=== PATIENT | male | born 1970 | race Caucasian/White ===

== ENCOUNTER 2018-12-22 16:46 | Inpatient (IN) ==
--- NOTE | 2018-12-22 16:54 | Emergency Department Note ---
Disposition Clinical Impression: Acute exacerbation of chronic obstructive airways disease Disposition: Admitted As Inpatient Condition: Fair Time of Disposition: 17:55 [facility] SOB HPI - General Stated Complaint: shortness of breath/head pain Time Seen by Provider: 12/22/18 16:54 Source: patient Mode of arrival: ambulatory Limitations: no limitations Nursing Notes Reviewed: Yes Vital Signs Reviewed: Yes - History of Present Illness Sudden onset shortness of breath unable to catch his breath he states that he is having no cough no hemoptysis no sputum production patient states it occurred as is leaving work he denies any diarrhea melena hematochezia hematemesis numbness tingling weakness recent weight gain or weight loss patient states though he examined given a relief inhaler all systems have been reviewed and are otherwise negative Pt Subjective Complaint: shortness of breath Onset (ago): [employer] Context: other (COPD history) Severity: severe Consistency/Duration: gradually worsening Improves with: nothing Worsens with: nothing Known history of: COPD Associated symptoms: Reports: cough, wheezing, sputum production, diaphoresis. Denies: chest pain, pain with inspiration, fever, orthopnea, lower extremity pain, polyuria, polydipsia, parasthesias, palpitations, hemoptysis, n ausea/vomiting, syncope, abdominal pain, sense of impending doom Treatment prior to arrival: none Cough present: Yes Cough Description: Involuntary, Non-Productive, Wheezy Cough Frequency: Intermittent Sputum production: No - Related Data Home Medications Medication Instructions Recorded Confirmed RX: Lisinopril-HCTZ 20-12.5 1 each PO DAILY 09/24/16 12/22/18 [Prinzide 20-12.5] Albuterol Neb [Proventil Neb] 2.5 mg IH ONCE 08/06/18 12/22/18 Budesonide/Formoterol 80/4.5 0 gm IH BIDR 08/06/18 12/22/18 [Symbicort 80/4.5] Previous Rx's Medication Instructions Recorded RX: Albuterol Neb [Proventil Neb] 2.5 mg IH Q4HR #30 vial.neb 08/06/18 Allergies Allergy/AdvReac Type Severity Reaction Status Date / Time Penicillins Allergy Hives Verified 12/22/18 20:25 All systems ED: reviewed and negative except as stated. Review of Systems: As Per HPI Constitutional: Denies: fever, chills, weakness Eyes: Denies: eye pain, eye discharge ENT ED: Reports: congestion. Denies: ear pain, throat pain Cardiovascular: Denies: chest pain, palpitations, syncope Respiratory: Reports: cough, dyspnea, wheezes, sputum production Gastrointestinal: Denies: abdominal pain, nausea Genitourinary: Denies: urgency, dysuria Musculoskeletal: Denies: back pain Neurological: Denies: headache Psychiatric: Denies: anxiety Endocrine: Denies: fatigue Hematological/Lymphatic: Denies: easy bleeding Allergic/Immunologic: Denies: facial swelling Past Medical History - Past Medical History Attestation: Yes The following information was validated with the patient. Source: patient, old records reviewed, nursing notes reviewed Medical history: Reports: asthma, COPD, diabetes, hyperlipidemia, hypertension Psychiatric history: Reports: no psych history - Social History Smoking Status: Current every day smoker Smokeless Tobacco Status: No Alcohol use: Reports: heavy Drug use: Reports: none Physical Exam - General Limitations: no limitations General appearance: alert, anxious, in distress, obese - Head Head exam: atraumatic, normocephalic, normal inspection - Eye Eye exam: Present: normal appearance, PERRL, EOMI - ENT ENT exam: normal exam, normal oropharynx, mucous membranes moist, TM's normal bilaterally, normal external ear exam - Neck Neck exam: Present: normal inspection, full ROM, trachea midline - Chest Chest inspection: Present: normal inspection, symmetric chest wall rise - Respiratory Respiratory exam: Present: wheezes - Cardiovascular Cardiovascular exam: Present: regular rate, normal rhythm, normal heart sounds - Abdominal Exam Abdominal exam: Present: soft, Non-Tender, normal bowel sounds. Absent: mass, pulsatile mass - Extremities Exam Extremities exam: Present: normal inspection, full ROM, normal capillary refill. Absent: tenderness, pedal edema, joint swelling, calf tenderness - Expanded Lower Extremity Exam Neurovascular/Tendon exam: Present: normal capillary refill, normal fine/light touch Gait: observed and normal - Back Exam Back exam: Present: normal inspection, full ROM. Absent: muscle spasm - Neurological Exam Neurological exam: Present: alert, oriented X3, CN II-XII intact, normal gait - Psychiatric Psychiatric exam: Present: normal affect, normal mood - Skin Skin exam: Present: warm, dry, intact, normal color Course Course Narrative: Patient was immediately seen and evaluated was given 2 aerosol treatments Solu- Medrol started on Levaquin patient cardiac after the aerosol treatments showing a little bit more movement of air exchange as result though chest x-rays obtained will give him a brief rest to see if we needed to give him additional aerosol treatments after dosing of steroids first 2 nebulizer treatments to see if that will resolve tolerated patient is resting comfortably at this time his skin now is warm and dry he is not diaphoretic able speak full sentences patient improving - Reevaluation(s) Reevaluation #1: Patient did meet sepsis criteria by the heart rate other indicators other than having a slightly elevated lactic acid which we did give him 30 ML's per kilo based upon his [place] body weight of about approximately 170 pounds which would 2400 ML's as result patient be admitted for observation recommendations I spoke with Yary Brown she did agree for admission the services Vital Signs O2 Sat by Pulse Oximetry 88 12/22/18 16:49 Temperature 98.0 F 12/23/18 04:00 Pulse Rate 99 12/23/18 04:00 Respiratory Rate 18 12/23/18 04:00 Blood Pressure 118/78 12/23/18 04:00 O2 Sat by Pulse Oximetry 96 12/23/18 04:00 Oxygen Delivery Oxygen Delivery Nasal Cannula Shortness of Breath/Dyspnea - Differential Diagnosis Likely: acute exacerbation of chronic obstructive airways disease, pneumonia - Medical Records Medical records reviewed: Yes I reviewed the patient's medical records. - Lab Data Lab results reviewed: Yes I reviewed the patient's lab results. Result diagrams: 12/22/18 17:19 12/22/18 17:19 Lab Results 12/22/18 12/22/18 12/22/18 Range/Units 17:19 17:19 17:19 WBC 9.2 (4.3-11.1) K/mcL RBC 4.75 (4.19-5.50) M/mcL Hgb 16.0 (12.9-16.9) g/dL Hct 45.2 (37.5-50.1) % MCV 95.2 (83.0-100.0) fL MCH 33.7 H (28.0-33.3) pg MCHC 35.4 (31.6-35.5) g/dL RDW 11.7 (11.5-14.5) % Plt Count 212 (140-400) K/mcL MPV 9.0 L (9.4-12.4) fL Immature Gran % 0.5 (0-4) % Seg Neutrophils % 88.3 % Lymphocytes % 4.1 % Monocytes % 6.5 % Eosinophils % 0.1 % Basophils % 0.5 % Neutrophils # 8.1 (1.6-8.9) K/mcL Lymphocytes # 0.4 L (0.6-4.6) K/mcL Monocytes # 0.6 (0.0-1.3) K/mcL Eosinophils # 0.0 (0.0-0.6) K/mcL Basophils # 0.1 (0.0-0.2) K/mcL PT 12.5 H (9.4-12.1) Seconds INR 1.1 APTT 33.1 (26.0-36.0) Seconds D-Dimer (0-500) ng/mLFEU Sodium 130 L (136-145) mEq/L Potassium 4.2 (3.5-5.1) mEq/L Chloride 96 L (98-107) mEq/L Carbon Dioxide 26 (23-29) mEq/L BUN 7 (6-20) mg/dL Creatinine 0.81 (0.70-1.30) mg/dL Est GFR ( Amer) > 60 (> 60) Est GFR (Non-Af Amer) > 60 (> 60) BUN/Creatinine Ratio 9 (6-26) Glucose 121 H (70-105) mg/dL Calculated Osmolality 269 L (280-300) Lactic Acid (0.5-2.2) mmol/L Calcium 9.1 (8.6-10.3) mg/dL Troponin I (< 0.04) ng/mL 12/22/18 12/22/18 12/22/18 Range/Units 17:19 17:19 17:19 WBC (4.3-11.1) K/mcL RBC (4.19-5.50) M/mcL Hgb (12.9-16.9) g/dL Hct (37.5-50.1) % MCV (83.0-100.0) fL MCH (28.0-33.3) pg MCHC (31.6-35.5) g/dL RDW (11.5-14.5) % Plt Count (140-400) K/mcL MPV (9.4-12.4) fL Immature Gran % (0-4) % Seg Neutrophils % % Lymphocytes % % Monocytes % % Eosinophils % % Basophils % % Neutrophils # (1.6-8.9) K/mcL Lymphocytes # (0.6-4.6) K/mcL Monocytes # (0.0-1.3) K/mcL Eosinophils # (0.0-0.6) K/mcL Basophils # (0.0-0.2) K/mcL PT (9.4-12.1) Seconds INR APTT (26.0-36.0) Seconds D-Dimer 459 (0-500) ng/mLFEU Sodium (136-145) mEq/L Potassium (3.5-5.1) mEq/L Chloride (98-107) mEq/L Carbon Dioxide (23-29) mEq/L BUN (6-20) mg/dL Creatinine (0.70-1.30) mg/dL Est GFR ( Amer) (> 60) Est GFR (Non-Af Amer) (> 60) BUN/Creatinine Ratio (6-26) Glucose (70-105) mg/dL Calculated Osmolality (280-300) Lactic Acid 2.4 H (0.5-2.2) mmol/L Calcium (8.6-10.3) mg/dL Troponin I < 0.03 (< 0.04) ng/mL - Radiology Data Radiology results reviewed: Yes I reviewed the patient's radiology results. ITS Impressions Chest X-Ray 12/22/18 16:59 IMPRESSION: No evidence for acute cardiopulmonary process. D/ / Jeremias Garduno MD / Jeremias Garduno MD Interpreting Provider: Jeremias Garduno MD - EKG Data EKG attestation: Yes I reviewed and interpreted this EKG. EKG results narrative: Sinus tach rate 129 RI 136 QRS 79 QT to 71 axis LV Critical Care Time Critical Care Time: Yes Total Critical Care Time: 35 Attestation: high probability of clinically significant life-threatening deterioration of this patient's condition as result we will COPD exacerbation which came on fairly abruptly for the etiology unknown with no recent cold symptoms but with the underlying history of COPD recommend observation status have spoken with the hospitalist who agrees after repeated aerosol treatments showing some improvement of his respiratory status though it does make him tachycardic with repeated treatments Sepsis Event Note - Evaluation Sepsis Screen: Sepsis Risk Current Stage of Suspected Sepsis: ruled out Reason for ruling out sepsis: copd exhaserbation Possible Source of Sepsis: pulmonary - Focused Exam Date of Encounter: 12/22/18 Time of Encounter: 17:50 Vital Signs: Vital Signs Pulse Resp BP Pulse Ox 12/22/18 18:05 20 96 12/22/18 18:00 118 16 142/95 96 Respiratory Exam: Present: wheezes, accessory muscle use, decreased breath sounds, prolonged expiratory phas Cardiovascular Exam: Present: tachycardia Capillary Refill: < 2 seconds Peripheral Pulse Strength: 3+ normal Peripheral Pulse Location: Radial Skin Exam: normal turgor - Bedside Monitoring Bedside Ultrasound Performed: No Passive Leg raise/fluid bolus: negative
[2018-12-22] MEDS ORDERED: Ipratropium/Albuterol Neb 3 ML ONE ×3 (16:55→20:25)
[2018-12-22] MEDS ORDERED: methylPREDNISolone 125 MG/2 ML VIAL IVP ONE (16:56)
[2018-12-22] MEDS ORDERED: 0.9 % Sodium Chloride 1,000 ML IVC ONE (16:56)
[2018-12-22] MEDS ORDERED: Levofloxacin 500 MG/100 ML 500 MG/100 ML BAG IVPB ONE (16:56)
[2018-12-22] MEDS ORDERED: Ipratropium/Albuterol Neb 3 ML IH ONE (16:56)
[2018-12-22 17:25] LABS: Basophils # 0.1 K/mcL (0.0-0.2); Basophils % 0.5 %; Eosinophils % 0.1 %; Hematocrit 45.2 % (37.5-50.1); Immature Granulocytes % 0.5 % (0-4); Lymphocytes # 0.4 K/mcL (0.6-4.6); Lymphocytes % 4.1 %; Mean Corpuscular HGB Conc 35.4 g/dL (31.6-35.5); Mean Corpuscular Hemoglobin 33.7 pg (28.0-33.3); Mean Corpuscular Volume 95.2 fL (83.0-100.0); Monocytes # 0.6 K/mcL (0.0-1.3); Monocytes % 6.5 %; Neutrophils # 8.1 K/mcL (1.6-8.9); Platelet Count 212 K/mcL (140-400); Red Blood Count 4.75 M/mcL (4.19-5.50); Red Cell Distribution Width 11.7 % (11.5-14.5); Segmented Neutrophils % 88.3 %
[2018-12-22 17:35] LABS: INR 1.1; Prothrombin Time 12.5 Seconds (9.4-12.1)
[2018-12-22 17:38] LABS: Activated Partial Thrombo Time 33.1 Seconds (26.0-36.0)
[2018-12-22 17:44] LABS: BUN/Creatinine Ratio 9 (6-26); Blood Urea Nitrogen 7 mg/dL (6-20); Calcium 9.1 mg/dL (8.6-10.3); Carbon Dioxide 26 mEq/L (23-29); Chloride 96 mEq/L (98-107); Glucose 121 mg/dL (70-105); Osmolality,Calculated 269 (280-300); Potassium 4.2 mEq/L (3.5-5.1); Sodium 130 mEq/L (136-145); eGFR For Non-African Americans > 60 (> 60)
[2018-12-22] MEDS ORDERED: Albuterol Neb 7.5 MG, Sodium Chloride for inhalation 12 ML IH ONE (17:56)
[2018-12-22] MEDS ORDERED: 0.9 % Sodium Chloride 1,000 ML IVC SCH (18:00)
[2018-12-22] MEDS: 0.9 % Sodium Chloride 1,000 ML IVC SCH ×2 (19:00→22:06)
--- NOTE | 2018-12-22 19:26 | Internal Med History&Physical ---
Date of Encounter: 12/22/18 Time of Encounter: 19:23 Assessment and Plan (1) Acute exacerbation of chronic obstructive airways disease Current visit: Yes Status: Acute Solu-Medrol duo nebs, when necessary albuterol, levaquin. cxr nad. influenza negative he failed outpatient treatment and has elevated lactic acid, he needs to be admitted risk of resp failure sepsis and . (2) HTN (hypertension), benign Current visit: Yes Status: Acute Will continue home medication,it is a little elevated today (3) COPD (chronic obstructive pulmonary disease) Current visit: Yes Status: Acute Due to smoking here with a COPD exacerbation. Qualifiers: COPD type: unspecified COPD Qualified Code(s): J44.9 - Chronic obstructive pulmonary disease, unspecified (4) Smoker Current visit: Yes Status: Acute cessation discussed, discussed he is decreasing his life span by smoking. will place patch (5) Obesity (BMI 30-39.9) Current visit: Yes Status: Acute (6) Elevated lactic acid level Current visit: Yes Status: Acute He is getting IV fluids repeat lactic acid per sepsis protocol. Blood cultures were drawn in the ER, wbc normal. (7) Tachycardia Current visit: Yes Status: Acute He is getting IV fluids will continue telemetry likely due to dehydration and recent duo nebs (8) EtOH dependence Current visit: Yes Status: Acute he does drink daily will monitor for signs of etoh with and treat with benzo as needed Qualifiers: Substance use status: uncomplicated Qualified Code(s): F10.20 - Alcohol dependence, uncomplicated Internal Medicine - H&P: HPI Chief complaint: sob Admitted From: Home History of present illness: Mr. Choi is a 48 year old male With a history of COPD with exacerbation in July with a prolonged course. He is a smoker. He came into the ER short of breath unable to catch his breath he was tachycardic. His lactic acid was elevated. He did get duo nebs Solu- Medrol in the emergency room he did improve with that and is resting com fortably. He did get IV fluids for his lactic acid elevation. He does have sweats and chills. He has chronic myalgia that has not changed she did have an episode of diarrhea once today. No further episodes of diarrhea he has not rea had any emesis but did feel nauseated when he was coughing. He has not had any sputum he has been dizzy but has not passed out he did feel close to passing out after he had a coughing spell. He is generally weak but nonfocal weakness. He has chronic myalgias due to back pain and that has not changed. But he did have some cramps in his legs. He denies chest pain palpitations sore throat. He did have some rhinorrhea at this week and when he was working outside when it was really cold and coming back inside. He has not had any rhinorrhea today. He has not been around anyone who is ill. This started just this morning when he woke up got worse at work. While he was at work he felt really short of breath and had his , taken to the emergency room. His has been ill with emesis. Past Med Surg Social Fam HX - Past Medical History Medical history: asthma, COPD, diabetes, hyperlipidemia, hypertension Psychiatric history: no psych history - Past Surgical History Surgical History: vasectomy Additional surgical history: CARDIAC CATH - Social History Smoking Status: Current every day smoker Smokeless Tobacco Status: No Alcohol use: heavy Drug use: none Internal Medicine - H&P: Meds Lisinopril-HCTZ 20-12.5 [Prinzide 20-12.5] 1 each PO DAILY 09/24/16 [History] Albuterol Neb [Proventil Neb] 2.5 mg IH ONCE 08/06/18 [History] Albuterol Neb [Proventil Neb] 2.5 mg IH Q4HR #30 vial.neb 08/06/18 [Rx] Budesonide/Formoterol 80/4.5 [Symbicort 80/4.5] 0 gm IH BIDR 08/06/18 [History] Allergy/AdvReac Type Severity Reaction Status Date / Time Penicillins Allergy Hives Verified 12/22/18 20:25 All Systems PM: A 10-system review of systems was performed and is negative for pertinent findings except as documented above in the HPI. - Constitutional Constitutional: chills, weakness (generalized), no fever(s), no falls - Constitutional Vitals: Temp Pulse Resp BP Pulse Ox 99.2 F 118 20 142/95 96 12/22/18 16:53 12/22/18 18:00 12/22/18 18:05 12/22/18 18:00 12/22/18 18:05 General appearance: Present: A&O X 3, pleasant (Diaphoretic), no acute distress, answers questions appropriately - Head Head exam: Present: atraumatic, normocephalic - ENT ENT exam: Present: mucous membranes moist - Neck Neck exam general surgery: Present: supple, trachea midline. Absent: lymphadenopathy, tenderness - Respiratory Respiratory exam: Present: decreased breath sounds, prolonged expiratory phase, wheezes Internal Med - H&P Results - Labs CBC & Chem 7: 12/22/18 17:19 12/22/18 17:19 Labs: Short CBC 12/22/18 Range/Units 17:19 WBC 9.2 (4.3-11.1) K/mcL Hgb 16.0 (12.9-16.9) g/dL Hct 45.2 (37.5-50.1) % Plt Count 212 (140-400) K/mcL Neutrophils # 8.1 (1.6-8.9) K/mcL BMP 12/22/18 17:19 Sodium 130 L Potassium 4.2 Chloride 96 L Carbon Dioxide 26 BUN 7 Creatinine 0.81 Glucose 121 H Calcium 9.1 Cardiac Enzymes 12/22/18 Range/Units 17:19 Troponin I < 0.03 (< 0.04) ng/mL - Impressions ITS Impressions Chest X-Ray 12/22/18 16:59 IMPRESSION: No evidence for acute cardiopulmonary process. D/ / Jeremias Garduno MD / Jeremias Garduno MD Interpreting Provider: Jeremias Garduno MD
[2018-12-22] MEDS: 0.9 % Sodium Chloride 1,000 ML IVC ONE ×2 (19:35→19:45)
[2018-12-22] MEDS ORDERED: Naloxone 0.4 MG/ML INJ IVP PRN (20:25)
[2018-12-22] MEDS ORDERED: Albuterol 2.5 MG/3 ML NEBULIZER IH PRN (20:25)
[2018-12-22] MEDS ORDERED: *HR* LORazepam 2 MG/ML VIAL IVP PRN (20:31)
[2018-12-22] MEDS ORDERED: Dextrose Gel 15 GM/37.5 ML TUBE PO PRN ×2 (20:34)
[2018-12-22] MEDS ORDERED: *HR* Dextrose 50 % in Water (Syg) 50 ML SYRINGE IVP PRN (20:34)
[2018-12-22] MEDS ORDERED: D5% in Water 1,000 ML IVC PRN (20:34)
[2018-12-22] MEDS: Nicotine 21 MG PATCH.TD24 TD SCH (22:10)
[2018-12-22] MEDS: Ipratropium/Albuterol Neb 3 ML IH SCH (22:11)
[2018-12-22] MEDS: Insulin LISPRO 300 UNITS/3 ML VIAL SQ SCH ×2 (22:13→22:36)
[2018-12-23] MEDS ORDERED: MethylPREDNISolone 40 MG/ML VIAL IVP SCH
[2018-12-23] MEDS: 0.9 % Sodium Chloride 1,000 ML IVC SCH ×4 (00:09→22:23)
[2018-12-23] MEDS: Ipratropium/Albuterol Neb 3 ML IH SCH ×7 (00:09→23:38)
[2018-12-23] MEDS: methylPREDNISolone 125 MG/2 ML VIAL IVP SCH ×5 (00:09→23:38)
[2018-12-23] MEDS: *HR* Enoxaparin 40 MG/0.4 ML SYRINGE SQ SCH (05:21)
[2018-12-23 05:30] LABS: Basophils % 0.3 %; Eosinophils % 0.2 %; Hematocrit 42.1 % (37.5-50.1); Hemoglobin 14.7 g/dL (12.9-16.9); Immature Granulocytes % 1.1 % (0-4); Lymphocytes # 0.3 K/mcL (0.6-4.6); Lymphocytes % 4.4 %; Mean Corpuscular HGB Conc 34.9 g/dL (31.6-35.5); Mean Corpuscular Hemoglobin 33.7 pg (28.0-33.3); Mean Corpuscular Volume 96.6 fL (83.0-100.0); Mean Platelet Volume 8.9 fL (9.4-12.4); Monocytes # 0.2 K/mcL (0.0-1.3); Platelet Count 172 K/mcL (140-400); Red Blood Count 4.36 M/mcL (4.19-5.50); Red Cell Distribution Width 11.9 % (11.5-14.5)
[2018-12-23 05:41] LABS: BUN/Creatinine Ratio 9 (6-26); Blood Urea Nitrogen 7 mg/dL (6-20); Calcium 8.7 mg/dL (8.6-10.3); Carbon Dioxide 24 mEq/L (23-29); Chloride 104 mEq/L (98-107); Glucose 190 mg/dL (70-105); Osmolality,Calculated 281 (280-300); Potassium 3.7 mEq/L (3.5-5.1); Sodium 134 mEq/L (136-145); eGFR For Non-African Americans > 60 (> 60)
[2018-12-23] MEDS: Ibuprofen 600 MG TABLET PO PRN ×3 (06:31→20:51)
[2018-12-23] MEDS: Benzonatate 100 MG CAPSULE PO PRN ×3 (06:32→20:51)
[2018-12-23] MEDS: Lisinopril-HCTZ 20-12.5mg TABLET PO SCH (08:30)
[2018-12-23] MEDS: Thiamine (B-1) 100 MG TABLET PO SCH (08:30)
[2018-12-23] MEDS: Vitamin B Complex/Vit C/Vit E 1 EACH TABLET PO SCH (08:30)
[2018-12-23] MEDS: Nicotine 21 MG PATCH.TD24 TD SCH (08:30)
[2018-12-23] MEDS: Folic Acid 1 MG TABLET PO SCH (08:30)
[2018-12-23] MEDS: Levofloxacin 500 MG/100 ML 500 MG/100 ML BAG IVPB SCH (08:30)
[2018-12-23] MEDS: Insulin LISPRO 300 UNITS/3 ML VIAL SQ SCH ×4 (08:32→20:52)
--- NOTE | 2018-12-23 10:50 | Internal Med Progress Note ---
Date of Encounter: 12/23/18 Time of Encounter: 10:50 - Assessment and plan (1) Acute exacerbation of chronic obstructive airways disease Current Visit: Yes Status: Acute Assessment and plan: will continue the solumedrol, duonebs, oxygen, levaquin he is the same as last night (2) HTN (hypertension), benign Current Visit: Yes Status: Acute Assessment and plan: elevated then back in range will continue current medication (3) COPD (chronic obstructive pulmonary disease) Current Visit: Yes Status: Acute Assessment and plan: he has had 2 hospitalizations for this in past year Qualifiers: COPD type: unspecified COPD Qualified Code(s): J44.9 - Chronic obstructive pulmonary disease, unspecified (4) Smoker Current Visit: Yes Status: Acute Assessment and plan: discussed that he needs to quit. he is high risk for and cancer. would recommend quitting (5) Obesity (BMI 30-39.9) Current Visit: Yes Status: Acute (6) Elevated lactic acid level Current Visit: Yes Status: Acute Assessment and plan: back in range with ivf (7) Tachycardia Current Visit: Yes Status: Acute Assessment and plan: back in range with ivf (8) EtOH dependence Current Visit: Yes Status: Acute Assessment and plan: on the ciwa scale, has not gotten ativan watching for withdrawl Qualifiers: Substance use status: uncomplicated Qualified Code(s): F10.20 - Alcohol dependence, uncomplicated (9) Hyponatremia Current Visit: Yes Status: Acute Assessment and plan: improved with ivf - Subjective Interval history: he continues to cough and wheeze, no sputum, rolling over in bed makes him sob. he is still diaphoretic. no n/v, no diarrhea since yesterday am. dizzy tired occ palp, no cp. - Constitutional Vitals: Temp Pulse Resp BP Pulse Ox 98.8 F 97 20 150/89 96 12/23/18 08:00 12/23/18 08:00 12/23/18 08:00 12/23/18 08:00 12/23/18 08:00 General appearance: Present: A&O X 3, pleasant (Diaphoretic), no acute distress, answers questions appropriately - Head Head exam: Present: atraumatic, normocephalic - Neck Neck exam general surgery: Present: supple, trachea midline. Absent: lym phadenopathy - Respiratory Respiratory exam: Present: decreased breath sounds, CTAB, prolonged expiratory phase, wheezes - Cardiovascular Cardiovascular exam: Present: RRR, +S1, +S2. Absent: systolic murmur - GI/Abdominal GI/Abdominal exam: Present: normal bowel sounds, soft, no peritoneal signs. Absent: distended, guarding, mass, tenderness - Extremities Exam Extremities exam: Present: normal capillary refill, warm. Absent: mottling, pe gab edema - Skin Skin exam: Present: diaphoretic, warm Internal Medicine: Result - Labs CBC & Chem 7: 12/23/18 05:20 12/23/18 05:20 Labs: Short CBC 12/22/18 12/23/18 Range/Units 17:19 05:20 WBC 9.2 6.6 (4.3-11.1) K/mcL Hgb 16.0 14.7 (12.9-16.9) g/dL Hct 45.2 42.1 (37.5-50.1) % Plt Count 212 172 (140-400) K/mcL Neutrophils # 8.1 6.0 (1.6-8.9) K/mcL BMP 12/22/18 12/23/18 17:19 05:20 Sodium 130 L 134 L Potassium 4.2 3.7 Chloride 96 L 104 Carbon Dioxide 26 24 BUN 7 7 Creatinine 0.81 0.77 Glucose 121 H 190 H Calcium 9.1 8.7 Cardiac Enzymes 12/22/18 Range/Units 17:19 Troponin I < 0.03 (< 0.04) ng/mL - ABG Interpretation ABG results: PT/INR, D-dimer PT 12.5 Seconds (9.4-12.1) H 12/22/18 17:19 D-Dimer 459 ng/mLFEU (0-500) 12/22/18 17:19 - Impressions Impressions Chest X-Ray 12/22/18 16:59 IMPRESSION: No evidence for acute cardiopulmonary process. D/ / Jeremias Garduno MD / Jeremias Garduno MD Interpreting Provider: Jeremias Garduno MD Consult Discharge Plan - Plan Referrals: Kaitlynn Delgadillo MD [Primary Care Provider] -
[2018-12-23 21:12] LABS: Estimated Average Glucose 120 mg/dl; Hemoglobin A1C 5.8 %
[2018-12-24] MEDS: Ipratropium/Albuterol Neb 3 ML IH SCH ×6 (03:56→23:28)
[2018-12-24] MEDS: 0.9 % Sodium Chloride 1,000 ML IVC SCH ×3 (04:59→13:06)
[2018-12-24] MEDS: *HR* Enoxaparin 40 MG/0.4 ML SYRINGE SQ SCH (05:04)
[2018-12-24] MEDS: methylPREDNISolone 125 MG/2 ML VIAL IVP SCH ×4 (05:04→23:29)
[2018-12-24] MEDS: Benzonatate 100 MG CAPSULE PO PRN ×3 (05:04→20:56)
[2018-12-24] MEDS: Ibuprofen 600 MG TABLET PO PRN ×3 (05:05→20:56)
[2018-12-24 05:27] LABS: Basophils % 0.2 %; Eosinophils % 0.1 %; Hematocrit 43.7 % (37.5-50.1); Immature Granulocytes % 0.4 % (0-4); Lymphocytes # 0.5 K/mcL (0.6-4.6); Lymphocytes % 3.4 %; Mean Corpuscular HGB Conc 34.3 g/dL (31.6-35.5); Mean Corpuscular Hemoglobin 33.5 pg (28.0-33.3); Mean Corpuscular Volume 97.5 fL (83.0-100.0); Mean Platelet Volume 9.3 fL (9.4-12.4); Monocytes # 0.6 K/mcL (0.0-1.3); Monocytes % 4.1 %; Platelet Count 195 K/mcL (140-400); Red Blood Count 4.48 M/mcL (4.19-5.50); Red Cell Distribution Width 12.2 % (11.5-14.5); Segmented Neutrophils % 91.8 %
[2018-12-24 05:29] LABS: Neutrophils # 12.9 K/mcL (1.6-8.9)
[2018-12-24 05:43] LABS: BUN/Creatinine Ratio 13 (6-26); Blood Urea Nitrogen 10 mg/dL (6-20); Calcium 8.4 mg/dL (8.6-10.3); Carbon Dioxide 26 mEq/L (23-29); Chloride 105 mEq/L (98-107); Glucose 160 mg/dL (70-105); Osmolality,Calculated 286 (280-300); Potassium 3.7 mEq/L (3.5-5.1); Sodium 137 mEq/L (136-145); eGFR For Non-African Americans > 60 (> 60)
[2018-12-24] MEDS: Insulin LISPRO 300 UNITS/3 ML VIAL SQ SCH ×4 (08:36→20:57)
[2018-12-24] MEDS: Folic Acid 1 MG TABLET PO SCH (08:46)
[2018-12-24] MEDS: Vitamin B Complex/Vit C/Vit E 1 EACH TABLET PO SCH (08:46)
[2018-12-24] MEDS: Lisinopril-HCTZ 20-12.5mg TABLET PO SCH (08:46)
[2018-12-24] MEDS: Nicotine 21 MG PATCH.TD24 TD SCH (08:46)
[2018-12-24] MEDS: Levofloxacin 500 MG/100 ML 500 MG/100 ML BAG IVPB SCH (08:46)
[2018-12-24] MEDS: Thiamine (B-1) 100 MG TABLET PO SCH (08:46)
--- NOTE | 2018-12-24 11:39 | Internal Med Progress Note ---
Date of Encounter: 12/24/18 Time of Encounter: 13:41 - Assessment and plan (1) Acute exacerbation of chronic obstructive airways disease Current Visit: Yes Status: Acute Assessment and plan: will continue the solumedrol, duonebs, oxygen, levaquin wean oxygen (2) HTN (hypertension), benign Current Visit: Yes Status: Acute Assessment and plan: his blood pressure has been in range on the current medication,but has a cough can be from acei will change to arb (3) COPD (chronic obstructive pulmonary disease) Current Visit: Yes Status: Acute Assessment and plan: he has had 2 hospitalizations for this in past year Qualifiers: COPD type: unspecified COPD Qualified Code(s): J44.9 - Chronic obstructive pulmonary disease, unspecified (4) Smoker Current Visit: Yes Status: Acute Assessment and plan: discussed that he needs to quit. he is high risk for and cancer. would recommend quitting (5) Obesity (BMI 30-39.9) Current Visit: Yes Status: Acute (6) Elevated lactic acid level Current Visit: Yes Status: Acute Assessment and plan: back in range with ivf (7) Tachycardia Current Visit: Yes Status: Acute Assessment and plan: back in range with ivf (8) EtOH dependence Current Visit: Yes Status: Acute Assessment and plan: on the ciwa scale, has not gotten ativan watching for withdrawl Qualifiers: Substance use status: uncomplicated Qualified Code(s): F10.20 - Alcohol dependence, uncomplicated (9) Hyponatremia Current Visit: Yes Status: Acute Assessment and plan: improved with ivf, due to dehydration - Subjective Interval history: he continues to cough and wheeze, no sputum, c. no n/v, no diarrhea since admission. dizzy tired occ palp, no cp. he wants to take a shower, he always has a dry cough - Constitutional Vitals: Temp Pulse Resp BP Pulse Ox 97.9 F 96 19 105/67 96 12/24/18 10:18 12/24/18 10:18 12/24/18 10:59 12/24/18 10:18 12/24/18 10:59 General appearance: Present: A&O X 3, pleasant (Diaphoretic), no acute distress, answers questions appropriately - Head Head exam: Present: atraumatic, normocephalic - Neck Neck exam general surgery: Present: supple, trachea midline. Absent: lymphadenopathy - Respiratory Respiratory exam: Present: decreased breath sounds, prolonged expiratory phase, tachypnea - Cardiovascular Cardiovascular exam: Present: RRR, +S1, +S2. Absent: systolic murmur - GI/Abdominal GI/Abdominal exam: Present: normal bowel sounds, soft, no peritoneal signs. Absent: distended, guarding, tenderness - Extremities Exam Extremities exam: Present: normal capillary refill, warm. Absent: pedal edema - Skin Skin exam: Present: rash (scaling of psorasis of arms and legs) Internal Medicine: Result - Labs CBC & Chem 7: 12/24/18 05:15 12/24/18 05:15 Labs: Short CBC 12/24/18 Range/Units 05:15 WBC 14.0 H D (4.3-11.1) K/mcL Hgb 15.0 (12.9-16.9) g/dL Hct 43.7 (37.5-50.1) % Plt Count 195 (140-400) K/mcL Neutrophils # 12.9 H (1.6-8.9) K/mcL BMP 12/24/18 05:15 Sodium 137 Potassium 3.7 Chloride 105 Carbon Dioxide 26 BUN 10 Creatinine 0.75 Glucose 160 H Calcium 8.4 L - ABG Interpretation ABG results: PT/INR, D-dimer PT 12.5 Seconds (9.4-12.1) H 12/22/18 17:19 D-Dimer 459 ng/mLFEU (0-500) 12/22/18 17:19 Consult Discharge Plan - Plan Referrals: Kaitlynn Delgadillo MD [Primary Care Provider] -
[2018-12-24] MEDS ORDERED: Mag Hydrox/Al Hydrox/Simeth 30 ML UDC PO PRN (15:54)
[2018-12-25] MEDS: Ipratropium/Albuterol Neb 3 ML IH SCH ×6 (03:40→23:45)
[2018-12-25 05:46] LABS: Basophils % 0.2 %; Hematocrit 44.3 % (37.5-50.1); Hemoglobin 14.9 g/dL (12.9-16.9); Immature Granulocytes % 0.5 % (0-4); Lymphocytes # 0.5 K/mcL (0.6-4.6); Mean Corpuscular HGB Conc 33.6 g/dL (31.6-35.5); Mean Corpuscular Hemoglobin 32.9 pg (28.0-33.3); Mean Corpuscular Volume 97.8 fL (83.0-100.0); Mean Platelet Volume 8.9 fL (9.4-12.4); Monocytes # 0.4 K/mcL (0.0-1.3); Monocytes % 4.3 %; Neutrophils # 8.7 K/mcL (1.6-8.9); Platelet Count 198 K/mcL (140-400); Red Blood Count 4.53 M/mcL (4.19-5.50); Red Cell Distribution Width 12.1 % (11.5-14.5)
[2018-12-25 06:01] LABS: BUN/Creatinine Ratio 18 (6-26); Blood Urea Nitrogen 13 mg/dL (6-20); Calcium 8.5 mg/dL (8.6-10.3); Carbon Dioxide 29 mEq/L (23-29); Chloride 101 mEq/L (98-107); Glucose 154 mg/dL (70-105); Osmolality,Calculated 283 (280-300); Potassium 3.8 mEq/L (3.5-5.1); Sodium 135 mEq/L (136-145); eGFR For Non-African Americans > 60 (> 60)
[2018-12-25] MEDS: Benzonatate 100 MG CAPSULE PO PRN ×2 (06:21→20:31)
[2018-12-25] MEDS: Ibuprofen 600 MG TABLET PO PRN ×2 (06:21→20:32)
[2018-12-25] MEDS: methylPREDNISolone 125 MG/2 ML VIAL IVP SCH ×4 (06:22→23:44)
[2018-12-25] MEDS: *HR* Enoxaparin 40 MG/0.4 ML SYRINGE SQ SCH (06:22)
[2018-12-25] MEDS: Insulin LISPRO 300 UNITS/3 ML VIAL SQ SCH ×4 (08:29→20:31)
[2018-12-25] MEDS: Nicotine 21 MG PATCH.TD24 TD SCH (08:41)
[2018-12-25] MEDS: Folic Acid 1 MG TABLET PO SCH (08:41)
[2018-12-25] MEDS: Vitamin B Complex/Vit C/Vit E 1 EACH TABLET PO SCH (08:41)
[2018-12-25] MEDS: Thiamine (B-1) 100 MG TABLET PO SCH (08:41)
[2018-12-25] MEDS: Levofloxacin 500 MG/100 ML 500 MG/100 ML BAG IVPB SCH (08:42)
--- NOTE | 2018-12-25 11:20 | Internal Med Progress Note ---
Date of Encounter: 12/25/18 Time of Encounter: 08:30 - Assessment and plan (1) Acute exacerbation of chronic obstructive airways disease Current Visit: Yes Status: Acute Assessment and plan: will continue the solumedrol, duonebs, oxygen, levaquin wean oxygen, improved air exchange but still a lot of wheeze and cough with any movement. not ready for d/c will likely still require several more days (2) HTN (hypertension), benign Current Visit: Yes Status: Acute Assessment and plan: his blood pressure has been in range on the current medication,but has a cough can be from acei will change to arb. this was just changed today will watch bp and change accordingly (3) COPD (chronic obstructive pulmonary disease) Current Visit: Yes Status: Acute Assessment and plan: he has had 2 hospitalizations for this in past year, discussed he is high risk Qualifiers: COPD type: unspecified COPD Qualified Code(s): J44.9 - Chronic obstructive pulmonary disease, unspecified (4) Smoker Current Visit: Yes Status: Acute Assessment and plan: discussed that he needs to quit. he is high risk for and cancer. would recommend quitting. discussed again today (5) Obesity (BMI 30-39.9) Current Visit: Yes Status: Acute (6) Elevated lactic acid level Current Visit: Yes Status: Acute Assessment and plan: back in range with ivf. resolved (7) Tachycardia Current Visit: Yes Status: Acute Assessment and plan: back in range with ivf, due to dehyration (8) EtOH dependence Current Visit: Yes Status: Acute Assessment and plan: on the ciwa scale, has not gotten ativan watching for withdrawl, he is doing ok without it since saturday Qualifiers: Substance use status: uncomplicated Qualified Code(s): F10.20 - Alcohol dependence, uncomplicated (9) Hyponatremia Current Visit: Yes Status: Acute Assessment and plan: improved with ivf, due to dehydration - Subjective Interval history: he continues to cough and wheeze, no sputum, no n/v, no diarrhea since admission. dizzy tired no cp. he took a shower yesterday it did wear him out. he always has a dry cough changed from lisinopril to arb yesterday. but just got changed this am. has not affected the cough yet. - Constitutional Vitals: Temp Pulse Resp BP Pulse Ox 97.9 F 78 96 131/92 2 12/25/18 08:00 12/25/18 08:00 12/25/18 08:00 12/25/18 08:00 12/25/18 08:00 General appearance: Present: A&O X 3, pleasant (Diaphoretic), no acute distress, answers questions appropriately - Head Head exam: Present: atraumatic, normocephalic - Neck Neck exam general surgery: Present: supple, trachea midline - Respiratory Respiratory exam: Present: decreased breath sounds (but increased air exchange from yesterday), prolonged expiratory phase, wheezes. Absent: accessory muscle use - Cardiovascular Cardiovascular exam: Present: +S1, +S2. Absent: RRR (but distant due to ap diameter), systolic murmur - GI/Abdominal GI/Abdominal exam: Present: normal bowel sounds, soft, no peritoneal signs. Absent: distended, mass, tenderness - Extremities Exam Extremities exam: Present: normal capillary refill, warm. Absent: mottling, pedal edema - Skin Skin exam: Present: rash (scaling of psoriais is improving) Internal Medicine: Result - Labs CBC & Chem 7: 12/25/18 05:40 12/25/18 05:40 Labs: Short CBC 12/25/18 Range/Units 05:40 WBC 9.6 (4.3-11.1) K/mcL Hgb 14.9 (12.9-16.9) g/dL Hct 44.3 (37.5-50.1) % Plt Count 198 (140-400) K/mcL Neutrophils # 8.7 (1.6-8.9) K/mcL BMP 12/25/18 05:40 Sodium 135 L Potassium 3.8 Chloride 101 Carbon Dioxide 29 BUN 13 Creatinine 0.73 Glucose 154 H Calcium 8.5 L - ABG Interpretation ABG results: PT/INR, D-dimer PT 12.5 Seconds (9.4-12.1) H 12/22/18 17:19 D-Dimer 459 ng/mLFEU (0-500) 12/22/18 17:19 Consult Discharge Plan - Plan Referrals: Kaitlynn Delgadillo MD [Primary Care Provider] -
--- NOTE | 2018-12-25 16:30 | Electrocardiograph Report ---
[place] [id number] Test Date: 2018-12-22 Pat Name: Terrence Choi Department: [facility] Room: 116 Gender: M Administrative Services Assistant: : [id number] Requested By: Cecy Toure Order Number: [id number] Reading MD: Adriel Burrell Measurements Intervals [place] Rate: 129 P: 69 [place]: 136 QRS: 55 QRSD: 79 T: 57 QT: 271 QTc: 397 Interpretive Statements Sinus tachycardia Electronically Signed On 12-25-2018 16:28:26 EDT by Adriel Burrell
[2018-12-26] MEDS: Ipratropium/Albuterol Neb 3 ML IH SCH ×7 (04:08→23:53)
[2018-12-26] MEDS: methylPREDNISolone 125 MG/2 ML VIAL IVP SCH ×4 (06:16→23:53)
[2018-12-26] MEDS: *HR* Enoxaparin 40 MG/0.4 ML SYRINGE SQ SCH (06:16)
[2018-12-26] MEDS: Benzonatate 100 MG CAPSULE PO PRN (06:17)
[2018-12-26] MEDS: Ibuprofen 600 MG TABLET PO PRN ×2 (06:17→14:50)
--- NOTE | 2018-12-26 07:04 | Internal Med Progress Note ---
Date of Encounter: 12/26/18 Time of Encounter: 06:59 - Assessment and plan (1) Acute exacerbation of chronic obstructive airways disease Current Visit: Yes Status: Acute Assessment and plan: Continued improvement in his exacerbation of COPD likely from acute infection, still having horrible coughing jags, hypoxia, requiring frequent nebulizer treatments, and becomes dyspneic with just a few steps. Continue current treatment plan. We will add Acapella respiratory device to see if they can help loosen the secretions. (2) HTN (hypertension), benign Current Visit: Yes Status: Acute Assessment and plan: Minimally elevated blood pressure as he transitions from DANNIE inhibitor to ARB. Will follow (3) Smoker Current Visit: Yes Status: Acute (4) EtOH dependence Current Visit: Yes Status: Acute Assessment and plan: No withdrawal symptoms. Continue to monitor Qualifiers: Substance use status: uncomplicated Qualified Code(s): F10.20 - Alcohol dependence, uncomplicated - Subjective Interval history: Patient feels that he is getting better, improving with his breathing and increase activity level. He still gets short of breath just getting up within the room. He still has a horrible cough, and rarely any sputum production. He denies any fevers or chills but will have some "sweating" to the night, but this is not unusual for him chronically as well. He denies a cardiac type chest pain. The nurses report he had a good night. His oxygen supplement is down to 1 L at times. His saturation drop when he coughs and he is chronically red in the face. - Constitutional Vitals: Temp Pulse Resp BP Pulse Ox 98 F 72 18 138/88 91 12/26/18 03:36 12/26/18 03:36 12/26/18 03:36 12/26/18 03:36 12/26/18 03:36 General appearance: Present: A&O X 3, no acute distress, answers questions appropriately Exam: He is able to sit up in the bed, intermittently will have a horrible cough and he has to hold his chest. - Respiratory Additional comments: Markedly diminished breath sounds throughout. End-expiratory wheezes heard in all santos. No localization of crackles. He just had a breathing treatment. - Cardiovascular Cardiovascular exam: Present: distant heart sounds, RRR, +S1, +S2 - Extremities Exam Extremities exam: Absent: calf tenderness, pedal edema, tenderness Internal Medicine: Result - Labs CBC & Chem 7: 12/25/18 05:40 12/25/18 05:40 Labs: Labs from yesterday reviewed. White blood cell count is normal. - ABG Interpretation ABG results: PT/INR, D-dimer PT 12.5 Seconds (9.4-12.1) H 12/22/18 17:19 D-Dimer 459 ng/mLFEU (0-500) 12/22/18 17:19 Consult Discharge Plan - Plan Referrals: Kaitlynn Delgadillo MD [Primary Care Provider] -
[2018-12-26] MEDS: Vitamin B Complex/Vit C/Vit E 1 EACH TABLET PO SCH (09:51)
[2018-12-26] MEDS: Nicotine 21 MG PATCH.TD24 TD SCH (09:51)
[2018-12-26] MEDS: Thiamine (B-1) 100 MG TABLET PO SCH (09:51)
[2018-12-26] MEDS: Folic Acid 1 MG TABLET PO SCH (09:51)
[2018-12-26] MEDS: Levofloxacin 500 MG/100 ML 500 MG/100 ML BAG IVPB SCH (09:51)
[2018-12-26] MEDS: Insulin LISPRO 300 UNITS/3 ML VIAL SQ SCH ×4 (09:52→21:20)
[2018-12-26] MEDS: Promethazine/Codeine Oral Sryup 5 ML UDC PO PRN ×2 (14:49→21:27)
--- NOTE | 2018-12-26 18:57 | Event Note ---
Date of Encounter: 12/26/18 Time of Encounter: 18:56 I reevaluated the patient tonight. He told me he feels a bit better but not great. He is almost afraid to leave the room for fear he will have a coughing jag and pass out as he has previously done this. He plans to have a shower tonight. He had such severe coughing jags and concerned about passing out that we gave him a dose of Phenergan with codeine and that took the edge off. He still has a cough. No side effects were noted. He has diminished breath sounds throughout, but a lot less wheezing tonight. No localization of crackles. Continue current regimen. Consider tapering steroids tomorrow.
[2018-12-27] MEDS: Promethazine/Codeine Oral Sryup 5 ML UDC PO PRN ×2 (03:32→13:04)
[2018-12-27] MEDS: Ipratropium/Albuterol Neb 3 ML IH SCH ×5 (04:22→20:18)
[2018-12-27] MEDS: *HR* Enoxaparin 40 MG/0.4 ML SYRINGE SQ SCH (05:37)
[2018-12-27] MEDS: methylPREDNISolone 125 MG/2 ML VIAL IVP SCH ×2 (05:37→12:53)
[2018-12-27] MEDS: Insulin LISPRO 300 UNITS/3 ML VIAL SQ SCH ×4 (08:43→20:20)
[2018-12-27] MEDS: Folic Acid 1 MG TABLET PO SCH (09:03)
[2018-12-27] MEDS: Nicotine 21 MG PATCH.TD24 TD SCH (09:03)
[2018-12-27] MEDS: Thiamine (B-1) 100 MG TABLET PO SCH (09:03)
[2018-12-27] MEDS: Vitamin B Complex/Vit C/Vit E 1 EACH TABLET PO SCH (09:03)
[2018-12-27] MEDS: Benzonatate 100 MG CAPSULE PO PRN (09:03)
[2018-12-27] MEDS: Levofloxacin 500 MG/100 ML 500 MG/100 ML BAG IVPB SCH (09:04)
--- NOTE | 2018-12-27 16:09 | Internal Med Progress Note ---
Date of Encounter: 12/27/18 Time of Encounter: 15:59 - Assessment and plan (1) Acute exacerbation of chronic obstructive airways disease Current Visit: Yes Status: Acute Assessment and plan: He appears to be improving. Lung findings are improved. He is able to wean down oxygen to one half liter now. He is able to be walking in the hallway a bit with less fatigue, but still a struggle at times. The Acapella seems to be helpful. The nebulizer treatments are still helpful. We will try to taper the steroids down a bit today. (2) HTN (hypertension), benign Current Visit: Yes Status: Acute Assessment and plan: Blood pressure occasionally elevated, but not needing intervention. (3) Smoker Current Visit: Yes Status: Acute (4) EtOH dependence Current Visit: Yes Status: Acute Assessment and plan: No withdrawal symptoms noted. Qualifiers: Substance use status: uncomplicated Qualified Code(s): F10.20 - Alcohol dependence, uncomplicated - Subjective Interval history: Patient states she continues to feel better. He was able to walk to the shower and back with minimal dyspnea. He is up and around in the room with less fatigue and dyspnea. Still gets winded and fatigued easily. Oxygen supplement but is occasionally it is now down to one half liter per minute at rest. Still has severe coughing jags, but less severe, less often and shorter in duration. He still gets a bit of sputum up. He thinks the Acapella device has been helpful. His appetite is fairly good. Some heavy foods give some epigastric distress and a cough. Soup etc. is fine. - Constitutional Vitals: Temp Pulse Resp BP Pulse Ox 97.0 F L 75 16 130/82 95 12/27/18 11:53 12/27/18 11:53 12/27/18 11:53 12/27/18 11:53 12/27/18 11:53 General appearance: Present: A&O X 3, no acute distress, answers questions appropriately Exam: Patient is sitting up in bed and has company. He looks much better today. No dyspnea. Color was good. Only occasional and short-lived coughing jags. - Respiratory Additional comments: Mild extra wheezes heard in all lung santos. Relatively poor air exchange and tight. No respiratory distress. He did have a bit of a coughing jag when taking these respirations. No localization of crackles. - Cardiovascular Cardiovascular exam: Present: RRR, +S1, +S2 Internal Medicine: Result - Labs CBC & Chem 7: 12/25/18 05:40 12/25/18 05:40 - ABG Interpretation ABG results: PT/INR, D-dimer PT 12.5 Seconds (9.4-12.1) H 12/22/18 17:19 D-Dimer 459 ng/mLFEU (0-500) 12/22/18 17:19 Consult Discharge Plan - Plan Referrals: Kaitlynn Delgadillo MD [Primary Care Provider] -
[2018-12-27 22:16] LABS: Adenovirus Not Detected (Not Detect); Bordetella Pertussis Not Detected (Not Detect); Chlamydophila pneumoniae Not Detected (Not Detect); Coronavirus 229E Not Detected (Not Detect); Coronavirus HKU1 Not Detected (Not Detect); Coronavirus NL63 Not Detected (Not Detect); Coronavirus OC43 Not Detected (Not Detect); Human Metapneumovirus Not Detected (Not Detect); Human Rhinovirus/Enterovirus Not Detected (Not Detect); Influenza A Subtype 2009 H1 Not Detected (Not Detect); Influenza A Untypeable Not Detected (Not Detect); Influenza B Not Detected (Not Detect); Mycoplasma pneumoniae Not Detected (Not Detect); Parainfluenza Virus 1 Not Detected (Not Detect); Parainfluenza Virus 2 Not Detected (Not Detect); Parainfluenza Virus 3 Not Detected (Not Detect); Parainfluenza Virus 4 Not Detected (Not Detect); Respiratory Syncytial Virus Not Detected (Not Detect)
[2018-12-28] MEDS: Ipratropium/Albuterol Neb 3 ML IH SCH ×5 (00:02→15:06)
[2018-12-28] MEDS: methylPREDNISolone 125 MG/2 ML VIAL IVP SCH ×2 (00:02→08:36)
[2018-12-28] MEDS: Benzonatate 100 MG CAPSULE PO PRN (00:03)
[2018-12-28] MEDS: *HR* Enoxaparin 40 MG/0.4 ML SYRINGE SQ SCH (04:32)
[2018-12-28 05:18] LABS: Basophils % 0.3 %; Hematocrit 46.8 % (37.5-50.1); Hemoglobin 15.9 g/dL (12.9-16.9); Lymphocytes # 1.1 K/mcL (0.6-4.6); Lymphocytes % 13.4 %; Mean Corpuscular Hemoglobin 32.8 pg (28.0-33.3); Mean Corpuscular Volume 96.5 fL (83.0-100.0); Mean Platelet Volume 9.3 fL (9.4-12.4); Monocytes # 0.6 K/mcL (0.0-1.3); Monocytes % 7.9 %; Platelet Count 202 K/mcL (140-400); Red Blood Count 4.85 M/mcL (4.19-5.50); Red Cell Distribution Width 11.6 % (11.5-14.5); Segmented Neutrophils % 77.4 %
[2018-12-28 05:31] LABS: Platelet Estimate Normal (Normal)
[2018-12-28 05:35] LABS: BUN/Creatinine Ratio 26 (6-26); Blood Urea Nitrogen 18 mg/dL (6-20); Calcium 8.4 mg/dL (8.6-10.3); Carbon Dioxide 29 mEq/L (23-29); Chloride 102 mEq/L (98-107); Glucose 139 mg/dL (70-105); Osmolality,Calculated 286 (280-300); Potassium 4.3 mEq/L (3.5-5.1); Sodium 136 mEq/L (136-145); eGFR For Non-African Americans > 60 (> 60)
[2018-12-28 07:24] VITALS: BP 151/83
[2018-12-28] MEDS: Insulin LISPRO 300 UNITS/3 ML VIAL SQ SCH ×2 (07:48→11:45)
[2018-12-28] MEDS: Vitamin B Complex/Vit C/Vit E 1 EACH TABLET PO SCH (08:36)
[2018-12-28] MEDS: Levofloxacin 500 MG/100 ML 500 MG/100 ML BAG IVPB SCH (08:36)
[2018-12-28] MEDS: Thiamine (B-1) 100 MG TABLET PO SCH (08:36)
[2018-12-28] MEDS: Folic Acid 1 MG TABLET PO SCH (08:36)
[2018-12-28] MEDS: Nicotine 21 MG PATCH.TD24 TD SCH (08:37)
[2018-12-28] MEDS: Ibuprofen 600 MG TABLET PO PRN (14:19)
--- NOTE | 2018-12-28 15:16 | Discharge Summary ---
- NOTES TO OUTPATIENT PROVIDER Notes to Outpatient Provider: #1. Patient was discharged on a taper of prednisone and continuation of his albuterol nebulizer. Date of Encounter: 12/28/18 Time of Encounter: 15:13 - Discharge Diagnosis (1) Acute exacerbation of chronic obstructive airways disease Priority: Primary Status: Acute Comments: Patient was admitted last Saturday with exacerbation of COPD with related hypoxia, bronchospasm, tachycardia and weakness. His lactate level was elevated also likely due to his respiratory failure. His initial flu swab was negative, sputum cultures negative, blood cultures negative. He was placed on intravenous steroids, aggressive nebulizer treatments and Levaquin. Slowly over the subsequent several days he showed steady improvement. Tachycardia resolved. His steroids given intravenously were tapered, his oxygen was tapered and eventually he was able to be ambulatory on room air, cough much improved and saturations remaining normal. On day of discharge he had ambulated 4 times down the hallway and back without dyspnea or hypoxia. A respiratory infection panel was obtained showing positive for influenza A H3. At this time he is too far along in the course to warrant Tamiflu or other intervention. He has had no significant fever or chills or other classical influenza signs. He will be discharged today with taper of prednisone, continued nebulizer treatments, Tessalon Perles and will follow-up in the office in a few days with Dr. Flynn. (2) Influenza due to jorge influenza A virus subtype H3N2 Priority: Secondary Status: Acute Comments: His initial influenza swab was negative. A subsequent respiratory infection panel showed positive for influenza A H3. He is not having any fevers, chills or other typical influenza signs or symptoms and he is too far along in the course to warrant Tamiflu. Others at home have been ill and I suspect they have the similar infection. (3) HTN (hypertension), benign Priority: Secondary Status: Acute Comments: Intermittently his blood pressure has been elevated. His DANNIE inhibitor was changed to a ARB indicates that was contributing to with a cough. His current pressure is in the 140s systolic. We will adjust as an outpatient. (4) Smoker Priority: Secondary Status: Acute Comments: Patient is a history of smoking 1/2-[address] pack of stairs per day for many years. We talked about tobacco cessation, will continue nicotine patch as well. (5) EtOH dependence Priority: Secondary Status: Acute Comments: Patient has history of alcohol dependence and he was followed closely while hosp italized. No signs of alcohol withdrawal. We talked about moderating his alcohol at home. Qualifiers: Substance use status: uncomplicated Qualified Code(s): F10.20 - Alcohol dependence, uncomplicated Hospital course: Mr. Choi is a 48 year old male was admitted 7 days ago with exacerbation of COPD with wheezing, hypoxia, severe cough, tachycardia and elevated lactate level. He was treated with aggressive aerosols, IV steroids and Levaquin. He is now tapered to room air, ambulatory in the hallway, and cough markedly improved. See the diagnoses above. Will follow up with Dr. Flynn in a few days. Discharge discussed with: patient, family Time spent discussing smoking cessation with patient: 3 to 10 minutes - Time Spent with Patient Total time spent providing and/or coordinating discharge services: Time spent: Less than 30 minutes - Discharge Medications Prescriptions: New Albuterol Sulfate [Proair Hfa] 1 puff IH Q4-6H PRN #1 inh PRN Reason: wheezing or cough Benzonatate [Tessalon] 200 mg PO TID PRN #30 capsule PRN Reason: Cough GuaiFENesin ER [Mucinex] 600 mg PO BID #20 tbbp.12hr Irbesartan [Avapro] 150 mg PO DAILY #30 tablet Nicotine Patch [Nicoderm] 21 mg TD DAILY #30 patch.td24 predniSONE [PredniSONE] 10 mg PO DAILY #63 tablet Continue Budesonide/Formoterol 80/4.5 [Symbicort 80/4.5] 0 gm IH BIDR Changed Albuterol Neb [Proventil Neb] 2.5 mg IH Q4HR PRN #100 vial.neb PRN Reason: Wheezing or cough Discontinued Lisinopril-HCTZ 20-12.5 [Prinzide 20-12.5] 1 each PO DAILY Albuterol Neb [Proventil Neb] 2.5 mg IH ONCE Home Medications: Budesonide/Formoterol 80/4.5 [Symbicort 80/4.5] 0 gm IH BIDR 08/06/18 [History] Albuterol Neb [Proventil Neb] 2.5 mg IH Q4HR PRN #100 vial.neb 12/28/18 [Rx] Albuterol Sulfate [Proair Hfa] 1 puff IH Q4-6H PRN #1 inh 12/28/18 [Rx] Benzonatate [Tessalon] 200 mg PO TID PRN #30 capsule 12/28/18 [Rx] GuaiFENesin ER [Mucinex] 600 mg PO BID #20 tbbp.12hr 12/28/18 [Rx] Irbesartan [Avapro] 150 mg PO DAILY #30 tablet 12/28/18 [Rx] Nicotine Patch [Nicoderm] 21 mg TD DAILY #30 patch.td24 12/28/18 [Rx] predniSONE [PredniSONE] 10 mg PO DAILY #63 tablet 12/28/18 [Rx] Allergies/Adverse Reactions: Allergy/AdvReac Type Severity Reaction Status Date / Time Penicillins Allergy Hives Verified 12/22/18 20:25 Date of admission: 12/24/18 18:05 Primary care physician: Kaitlynn Delgadillo MD Consults: 12/22/18 20:25 Consult to Nurse Navigator [CONS] Routine Comment: Discharging clinician: Yandel Castro Anticipated date of discharge: 12/28/18 - Constitutional Vitals: Temp Pulse Resp BP Pulse Ox 98.6 F 60 16 151/83 94 12/28/18 07:23 12/28/18 07:23 12/28/18 15:07 12/28/18 07:23 12/28/18 15:07 General appearance: Present: A&O X 3, no acute distress, answers questions appropriately - Respiratory Additional comments: Diminished breath sounds throughout, and expiratory wheeze. His cough is very minimal and much improved. No dyspnea. Saturations are normal on room air. - Cardiovascular Cardiovascular exam: Present: RRR, +S1, +S2 - Patient Status Disposition: Home, Self-Care Condition: Good Functional capacity at discharge: independent ambulation Overall status at discharge: patient is progressing back to baseline - Discharge Instructions Follow Up With: Kaitlynn Delgadillo MD [Primary Care Provider] - Forms: ED Satisfaction Letter - Diet and Activity Activity: increase activity as tolerated Diet: low salt diet
== END 2018-12-28 15:52 | disposition home or self-care (01) | DRG 190 ==
LOC: EMEROOGRE 16:46 → INPGRE 16:46
PROVIDERS: ADMIT Family Medicine; ATTEND Family Medicine